=== PATIENT | female | born 1980 | race Two or more races ===

== ENCOUNTER 2025-01-27 09:41 | Emergency (ER) | payer OTHER ==
[~2025-01-27] VITALS: Ht 170.2 cm; Wt 65.8 kg
[2025-01-27 09:50] VITALS: TEMP 97.8
[2025-01-27] MEDS ORDERED: CIPR-262 PO (10:21)
[2025-01-27 10:26] LABS: APPEARANCE,URINE CLEAR (CLEAR); BLOOD, URINE 2+ Ery/uL (NEGATIVE); LEUKOCYTE ESTERASE ,URINE TRACE (NEGATIVE); NITRITE, URINE POSITIVE (NEGATIVE); UGLUCOSE TRACE mg/dL (NEGATIVE)
[2025-01-27 10:28] LABS: PREGNANCY TEST URINE QUAL NEGATIVE (NEGATIVE)
[2025-01-27 10:31] LABS: INR 0.93 (0.91-1.10)
[2025-01-27 10:41] LABS: ADD URINE CULTURE YES
[2025-01-27] MEDS ORDERED: CIPROFLOXACIN HCL 500 MG TABLET ONE (10:59)
[2025-01-27] MEDS: CIPROFLOXACIN HCL 250 MG TABLET PO ONE (11:03)
[2025-01-27 11:04] VITALS: BP 112/60; O2SAT 98
== END 2025-01-27 11:04 | disposition home or self-care (01) ==
LOC: ER 09:49
DX: N39.0 Urinary tract infection, site not specified (principal); Z88.0 Allergy status to penicillin; Z88.2 Allergy status to sulfonamides; Z79.899 Other long term (current) drug therapy; Z86.2 Personal history of diseases of the blood and blood-forming organs and certain disorders involving the immune mechanism
CPT/HCPCS: 36415; 81001; 84703-TC; 85730-TC; 87086-TC